=== PATIENT | female | born 1945 | race Caucasian/White ===

== ENCOUNTER 2022-04-18 18:00 | Inpatient (IN) | payer MEDICARE, OTHER ==
[~2022-04-18] VITALS: Ht 152.4 cm; Wt 62.2 kg
[2022-04-18] MEDS ORDERED: NS IV 1000 ML 1,000 ML IV SCH (18:15)
[2022-04-18 18:18] LABS: BASOPHILS # (AUTO) 0.1 10^3/uL (0.0-0.1); BASOPHILS % (AUTO) 1 % (0-10); EOSINOPHILS # (AUTO) 0.3 10^3/uL (0.0-0.3); EOSINOPHILS % (AUTO) 2 % (0-10); HEMATOCRIT 39 % (35-52); HEMOGLOBIN 13.2 g/dL (11.5-16.0); LYMPHOCYTES % (AUTO) 19 % (12-44); MEAN CORPUSCULAR HEMOGLOBIN 30 pg (25-34); MEAN CORPUSCULAR HGB CONC 34 g/dL (32-36); MEAN CORPUSCULAR VOLUME 88 fL (80-99); MEAN PLATELET VOLUME 9.6 fL (9.0-12.2); MONOCYTES # (AUTO) 0.4 10^3/uL (0.0-1.0); MONOCYTES % (AUTO) 3 % (0-12); NEUTROPHILS # (AUTO) 11.5 10^3/uL (1.8-7.8); NEUTROPHILS % (AUTO) 75 % (42-75); PLATELET COUNT 373 10^3/uL (130-400); WHITE BLOOD COUNT 15.3 10^3/uL (4.3-11.0)
--- NOTE | 2022-04-18 18:19 | ED General ---
General Stated Complaint: ABD PAIN, N/V Source of Information: Patient, EMS History of Present Illness Date Seen by Provider: Apr 18, 2022 Time Seen by Provider: 18:00 Initial Comments 76-year-old female presenting with EMS from home due to lower abdominal pain and nausea with vomiting and diarrhea. She states that she was feeling fine before she laid down for a nap and when she woke up she had the abdominal pain and cramping as well as diarrhea. After that she developed nausea and vomiting. She denies any exposure to ill contacts. She denies cough, shortness of breath, congestion, sore throat, pain with urination. She states that she has not eaten anything new or different. She has not had symptoms like this previously. She has had her appendix and uterus removed previously. Timing/Duration: 1 Hour Severity: Severe Associated Systoms: No Chest Pain, No Cough, No Diaphoresis, No Fever/Chills, No Headaches, No Loss of Appetite, No Malaise; Nausea/Vomiting; No Rash, No Seizure, No Shortness of Air, No Syncope Allergies and Home Medications Allergies Coded Allergies: Penicillins (Verified Allergy, Unknown, 04/18/22) Patient Home Medication List Home Medication List Reviewed: Yes Review of Systems Review of Systems Constitutional: chills; No fever EENTM: no symptoms reported Respiratory: no symptoms reported Cardiovascular: no symptoms reported Gastrointestinal: see HPI Genitourinary: no symptoms reported Musculoskeletal: no symptoms reported Skin: no symptoms reported Psychiatric/Neurological: No Symptoms Reported Past Xmessvd-Rhgovy-Ultlvh Hx Patient Social History Tobacco Use?: No Use of E-Cig and/or Vaping dev: No Substance use?: No Alcohol Use?: No Past Medical History Surgery/Hospitalization HX: Appendectomy, hysterectomy, HTN Physical Exam Vital Signs Vital Signs - First Documented 04/18/22 18:07 Temp 36.1 Pulse 77 Resp 22 B/P (MAP) 104/54 (71) Pulse Ox 99 O2 Delivery Room Air Capillary Refill : Height, Weight, BMI Height: '" Weight: lbs. oz. kg; BMI Method: General Appearance: Moderate Distress HEENT: PERRL/EOMI, Pharynx Normal Neck: Full Range of Motion, Normal Inspection, Non Tender, Supple Respiratory: Chest Non Tender, Lungs Clear, Normal Breath Sounds, No Accessory Muscle Use, No Respiratory Distress Cardiovascular: Regular Rate, Rhythm, Normal Peripheral Pulses Gastrointestinal: No Pulsatile Mass, Soft, Abnormal Bowel Sounds (Absent bowel sounds), Guarding (Suprapubic, left lower quadrant); No Rebound; Tenderness (Tender to palpation suprapubic and left lower quadrant) Rectal: Heme Positive Stool (Normal brown-colored stool but tested heme positive on Hemoccult) Extremity: Normal Capillary Refill, Normal Inspection, No Pedal Edema Neurologic/Psychiatric: Alert, Oriented x3, polisher hand II-XII Norm as Tested Skin: Normal Color, Warm/Dry Focused Exam Lactate Level 04/18/22 18:05: Lactic Acid Level 4.11*H Lactic Acid Level Laboratory Tests Test 04/18/22 18:05 Lactic Acid Level 4.11 MMOL/L (0.50-2.00) *H Progress/Results/Core Measures Suspected Sepsis SIRS Temperature: Pulse: Respiratory Rate: Laboratory Tests 04/18/22 18:05: White Blood Count 15.3H Blood Pressure / Mean: 04/18/22 18:05: Lactic Acid Level 4.11*H Laboratory Tests 04/18/22 18:05: Creatinine 0.99, INR Comment 0.9, Platelet Count 373, Total Bilirubin 0.5 Results/Orders Lab Results Laboratory Tests Test 04/18/22 18:05 04/18/22 20:05 Range/Units White Blood Count 15.3 H 4.3-11.0 10^3/uL Red Blood Count 4.48 3.80-5.11 10^6/uL Hemoglobin 13.2 11.5-16.0 g/dL Hematocrit 39 35-52 % Mean Corpuscular Volume 88 80-99 fL Mean Corpuscular Hemoglobin 30 25-34 pg Mean Corpuscular Hemoglobin Concent 34 32-36 g/dL Red Cell Distribution Width 13.3 10.0-14.5 % Platelet Count 373 130-400 10^3/uL Mean Platelet Volume 9.6 9.0-12.2 fL Immature Granulocyte % (Auto) 1 % Neutrophils (%) (Auto) 75 42-75 % Lymphocytes (%) (Auto) 19 12-44 % Monocytes (%) (Auto) 3 0-12 % Eosinophils (%) (Auto) 2 0-10 % Basophils (%) (Auto) 1 0-10 % Neutrophils # (Auto) 11.5 H 1.8-7.8 10^3/uL Lymphocytes # (Auto) 3.0 1.0-4.0 10^3/uL Monocytes # (Auto) 0.4 0.0-1.0 10^3/uL Eosinophils # (Auto) 0.3 0.0-0.3 10^3/uL Basophils # (Auto) 0.1 0.0-0.1 10^3/uL Immature Granulocyte # (Auto) 0.1 0.0-0.1 10^3/uL Neutrophils % (Manual) 83 % Lymphocytes % (Manual) 16 % Band Neutrophils 1 % Prothrombin Time 13.0 12.2-14.7 SEC INR Comment 0.9 0.8-1.4 Activated Partial Thromboplast Time 20 L 24-35 SEC Sodium Level 136 135-145 MMOL/L Potassium Level 3.7 3.6-5.0 MMOL/L Chloride Level 101 98-107 MMOL/L Carbon Dioxide Level 15 L 21-32 MMOL/L Anion Gap 20 H 5-14 MMOL/L Blood Urea Nitrogen 25 H 7-18 MG/DL Creatinine 0.99 0.60-1.30 MG/DL Estimat Glomerular Filtration Rate 58 BUN/Creatinine Ratio 25 Glucose Level 198 H 70-105 MG/DL Lactic Acid Level 4.11 *H 0.50-2.00 MMOL/L Calcium Level 10.6 H 8.5-10.1 MG/DL Corrected Calcium 8.5-10.1 MG/DL Total Bilirubin 0.5 0.1-1.0 MG/DL Aspartate Amino Transf (AST/SGOT) 27 5-34 U/L Alanine Aminotransferase (ALT/SGPT) 20 0-55 U/L Alkaline Phosphatase 62 40-136 U/L Troponin I < 0.30 <0.30 NG/ML C-Reactive Protein 0.69 H <0.50 MG/DL Total Protein 7.5 6.4-8.2 GM/DL Albumin 4.7 H 3.2-4.5 GM/DL Influenza Type A (RT-PCR) Not Detected Not Detecte Influenza Type B (RT-PCR) Not Detected Not Detecte SARS-CoV-2 RNA (RT-PCR) Not Detected Not Detecte Urine Color DARK YELLOW Urine Clarity CLOUDY Urine pH 7.5 5-9 Urine Specific [place] 1.010 L 1.016-1.022 Urine Protein TRACE H NEGATIVE Urine Glucose (UA) NEGATIVE NEGATIVE Urine Ketones NEGATIVE NEGATIVE Urine Nitrite NEGATIVE NEGATIVE Urine Bilirubin 2+ H NEGATIVE Urine Urobilinogen 2.0 < = 1.0 MG/DL Urine Leukocyte Esterase NEGATIVE NEGATIVE Urine RBC (Auto) NEGATIVE NEGATIVE Urine RBC NONE /HPF Urine WBC 5-10 H /HPF Urine Squamous Epithelial Cells 0-2 /HPF Urine Crystals NONE /LPF Urine Bacteria LARGE H /HPF Urine Casts NONE /LPF Urine Mucus NEGATIVE /LPF Urine Culture Indicated YES My Orders Orders - PRETTY GAN MD Monitor-Rhythm Ecg Trace Only (04/18/22 18:11) Ed Iv/Invasive Line Start (04/18/22 18:11) Cbc With Automated Diff (04/18/22 18:11) Comprehensive Metabolic Panel (04/18/22 18:11) Crp Fs (04/18/22 18:11) Troponin I Fs (04/18/22 18:11) Protime With Inr (04/18/22 18:11) Partial Thromboplastin Time (04/18/22 18:11) Ekg Tracing (04/18/22 18:11) Ns Iv 1000 Ml (Sodium Chloride 0.9%) (04/18/22 18:15) Covid 19 Inhouse Test (04/18/22 18:11) Ct Abdomen/Pelvis W (04/18/22 18:11) Influenza A And B By Pcr (04/18/22 18:11) Isolation Central Supply Req (04/18/22 18:11) Blood Culture (04/18/22 18:13) Lactic Acid Analyzer (04/18/22 18:13) Manual Differential (04/18/22 18:05) Ua Culture If Indicated (04/18/22 18:22) Ns Iv 1000 Ml (Sodium Chloride 0.9%) (04/18/22 18:49) Iohexol Injection (Omnipaque 350 Mg/Ml 1 (04/18/22 19:00) Received Contrast (Hold Metformin- Contr (04/18/22 19:00) Sodium Chloride Flush (Catheter Flush Sy (04/18/22 19:00) Ns (Ivpb) (Sodium Chloride 0.9% Ivpb Bag (04/18/22 19:00) Straight Cath For Spec.-Adult (04/18/22 19:16) Urine Culture (04/18/22 20:05) Ceftriaxone 1 Gm Pre-Mix (Rocephin 1 Gm (04/18/22 20:55) Lactated Ringers (Lr 1000 Ml Iv Solution (04/18/22 20:55) Stool Culture (04/18/22 21:27) Fecal Wbc (04/18/22 21:27) C Difficile Ag + Toxin A/B. (04/18/22 21:27) Isolation Central Supply Req (04/18/22 21:27) Medications Given in ED Current Medications Medications Dose Ordered Sig/John Route Start Time Stop Time Status Last Admin Dose Admin Iohexol 100 ml ONCE ONCE IV 04/18/22 19:00 04/18/22 19:01 DC 04/18/22 19:12 100 ML Sodium Chloride 10 ml NEEDED PRN IV 04/18/22 19:00 04/18/22 19:12 10 ML Sodium Chloride 100 ml ONCE ONCE IV 04/18/22 19:00 04/18/22 19:01 DC 04/18/22 19:12 80 ML Vital Signs/I&O 04/18/22 04/18/22 04/18/22 04/18/22 18:07 20:00 20:45 21:15 Temp 36.1 Pulse 77 85 81 86 Resp 22 15 15 14 B/P (MAP) 104/54 (71) 124/53 134/55 132/62 Pulse Ox 99 100 100 100 O2 Delivery Room Air Room Air Room Air Room Air 04/18/22 04/18/22 21:45 21:50 Pulse 86 70 Resp 15 14 B/P (MAP) 132/62 132/80 Pulse Ox 100 100 O2 Delivery Room Air Room Air Capillary Refill : Progress Note #1: Progress Note Check labs and urinalysis. Obtain electrocardiogram in addition to CT scan of her abdomen and pelvis. COVID swab and influenza swab. Give normal saline 1 L IV fluid bolus for hydration Progress Note #2: Progress Note Labs shows elevated white blood cell count to 15.3 thousand. She has elevated lactic acid of 4.11. Her Hemoccult test on the diarrhea stool was positive for blood. The stool itself was normal brown in color. Chemistry otherwise showed some possible mild dehydration with GFR 58 and a creatinine of 0.99. Cardiac enzymes were negative. Influenza and COVID swab were negative. Awaiting urinalysis and CT scan. Give a second liter of normal saline IV fluid bolus to help treat for the elevated lactic acid. This will give her a 30 milliliter per kilogram bolus of normal saline. Progress Note #3: Progress Note CT scan shows what appears to be at least a partial small bowel obstruction. Patient has had no vomiting here in the ED. With her findings for urinary tract infection, sepsis, elevated white blood cell count, elevated lactic acid, will admit patient for continued IV antibiotics and fluids. Monitoring for her partial small bowel obstruction. Try to obtain stool cultures in case there may be an infectious source for her nausea, vomiting, diarrhea. Discussed with Dr. Roca for the [facility] service and he accepted patient for admission. Consult Dr. OSCAR with surgery about the small bowel obstruction. ECG Initial ECG Impression Date: Apr 18, 2022 Initial ECG Impression Time: 18:29 Initial ECG Rate: 68 Initial ECG Rhythm: Normal Sinus Initial ECG Comparisson: No Previous ECG Available Comment Normal sinus rhythm with a heart rate of 68 bpm. [place] interval [address] elevation. Left axis deviation. Right bundle branch block. QT interval 422 ms with a QTc interval 439 ms. There is no prior tracing available for comparison. Diagnostic Imaging Diagonstic Imaging: CT Plain Films/CT/US/NM/MRI: abdomen, pelvis Comments NAME: [facility] REC#: [id number] PT STATUS: REG ER : 1945 PHYSICIAN: PRETTY GAN MD ADMIT DATE: 04/18/22/ER FS Draft Date of Exam:04/18/22 CT ABDOMEN/PELVIS W PROCEDURE: CT abdomen and pelvis with contrast. TECHNIQUE: Multiple contiguous axial images were obtained through the abdomen and pelvis after administration of intravenous contrast. Auto Exposure Controls were utilized during the CT exam to meet ALARA standards for radiation dose reduction. All CT scans use one or more of the following dose optimizing techniques: automated exposure control, MA and/or KvP adjustment based on patient size and exam type or iterative reconstruction. INDICATION: Lower abdominal pain with nausea, vomiting, diarrhea and chills. FINDINGS: The heart size is normal. There is a 7 mm noncalcified nodule in the left lung base. The lung bases are otherwise clear. The liver is normal in size. There is tiny cyst in the right lobe of the liver. There is no biliary duct dilatation. There is some questionable gallbladder wall thickening. Spleen is normal. The pancreas and adrenal glands are grossly unremarkable. Kidneys are normal. There is some moderately distended loops of small bowel suspect for small bowel obstruction. There is no free air. There is no ascites. There is a large amount of retained fecal material likely reflecting some degree of constipation. Bladder is normal. There is no pelvic mass or adenopathy. There are degenerative changes in the spine. IMPRESSION: 1. Dilated loops of small bowel suspect for small bowel obstruction. Additionally, there is a moderate amount of retained fecal material within the colon possibly reflecting some degree of constipation. 2. Questionable gallbladder wall thickening. This could be better evaluated with right upper quadrant ultrasound if clinically warranted. 3. 7 mm noncalcified nodule in the left lung base. There is likely a granuloma although neoplasm cannot be entirely excluded. Recommend short interval follow-up in three months to ensure stability. 4. Moderate degenerative changes in the spine. Dictated on workstation # [id number] Dict: 04/18/222001 Trans: 04/18/222008 [id number] Interpreted by: MARANDA CHOPRA MD Electronically signed by: Reviewed: Reviewed by Me Departure Communication (Admissions) Time/Spoke to Admitting Phy: 20:[address] Roca who is on-call for the [facility] service. He accepted the admission for the patient with findings for sepsis, UTI, small bowel obstruction. Will consult general surgery about CT findings. Give Rocephin for the urinary tract infection and sepsis. Time/Spoke to Consulting Phy: 20:[address] Oscar of consult Impression Primary Impression: Small bowel obstruction Additional Impressions: Nausea vomiting and diarrhea Lower abdominal pain Cystitis without hematuria Sepsis Qualified Codes: A41.9 - Sepsis, unspecified organism Disposition: 30 STILL A PATIENT Condition: Stable Admissions Decision to Admit Reason: Admit from ER (General) Decision to Admit/Date: Apr 18, 2022 Time/Decision to Admit Time: 20:48 Departure-Patient Inst. Referrals: EBONY SANTIZO MD Primary Care Physician PRETTY GAN MD Apr 18, 2022 18:19
[2022-04-18 18:24] LABS: INR 0.9 (0.8-1.4)
[2022-04-18 18:35] LABS: ALANINE AMINOTRANSFERASE 20 U/L (0-55); ALBUMIN 4.7 GM/DL (3.2-4.5); ALKALINE PHOSPHATASE 62 U/L (40-136); BILIRUBIN,TOTAL 0.5 MG/DL (0.1-1.0); BUN/CREATININE RATIO 25; CALCIUM 10.6 MG/DL (8.5-10.1); CARBON DIOXIDE 15 MMOL/L (21-32); CHLORIDE 101 MMOL/L (98-107); CREATININE SERUM 0.99 MG/DL (0.60-1.30); GFR ESTIMATED 58; GLUCOSE 198 MG/DL (70-105); POTASSIUM 3.7 MMOL/L (3.6-5.0); SODIUM 136 MMOL/L (135-145); TOTAL PROTEIN 7.5 GM/DL (6.4-8.2)
[2022-04-18] MEDS ORDERED: NS IV 1000 ML 1,000 ML IV STA (18:49)
[2022-04-18] MEDS ORDERED: HOLD METFORMIN - RECEIVED CONTRAST 20 ML VIAL IV SCH (19:00)
[2022-04-18] MEDS ORDERED: NS 100 ML (IVPB) BAG IV ONE (19:00)
[2022-04-18] MEDS ORDERED: IOHEXOL 350 MG/ML 100 ML (OMNIPAQUE 350) VIAL IV ONE (19:00)
[2022-04-18] MEDS ORDERED: CATHETER FLUSH 10 ML SYR IV PRN (19:00)
[2022-04-18 19:07] LABS: BAND NEUTROPHILS 1 %; LYMPHOCYTES % (MANUAL) 16 %; NEUTROPHILS % (MANUAL) 83 %
--- NOTE | 2022-04-18 20:09 | Diagnostic Imaging Report ---
PROCEDURE: CT abdomen and pelvis with contrast. TECHNIQUE: Multiple contiguous axial images were obtained through the abdomen and pelvis after administration of intravenous contrast. Auto Exposure Controls were utilized during the CT exam to meet ALARA standards for radiation dose reduction. All CT scans use one or more of the following dose optimizing techniques: automated exposure control, MA and/or KvP adjustment based on patient size and exam type or iterative reconstruction. INDICATION: Lower abdominal pain with nausea, vomiting, diarrhea and chills. FINDINGS: The heart size is normal. There is a 7 mm noncalcified nodule in the left lung base. The lung bases are otherwise clear. The liver is normal in size. There is tiny cyst in the right lobe of the liver. There is no biliary duct dilatation. There is some questionable gallbladder wall thickening. Spleen is normal. The pancreas and adrenal glands are grossly unremarkable. Kidneys are normal. There is some moderately distended loops of small bowel suspect for small bowel obstruction. There is no free air. There is no ascites. There is a large amount of retained fecal material likely reflecting some degree of constipation. Bladder is normal. There is no pelvic mass or adenopathy. There are degenerative changes in the spine. IMPRESSION: 1. Dilated loops of small bowel suspect for small bowel obstruction. Additionally, there is a moderate amount of retained fecal material within the colon possibly reflecting some degree of constipation. 2. Questionable gallbladder wall thickening. This could be better evaluated with right upper quadrant ultrasound if clinically warranted. 3. 7 mm noncalcified nodule in the left lung base. There is likely a granuloma although neoplasm cannot be entirely excluded. Recommend short interval follow-up in three months to ensure stability. 4. Moderate degenerative changes in the spine. Dictated by: Dictated on workstation # [id number]
[2022-04-18 20:14] LABS: GLUCOSE, URINE (UA) NEGATIVE (NEGATIVE); KETONES,URINE NEGATIVE (NEGATIVE); LEUKOCYTE ESTERASE ,URINE NEGATIVE (NEGATIVE); NITRITE,URINE NEGATIVE (NEGATIVE); PH,URINE 7.5 (5-9); PROTEIN,URINE TRACE (NEGATIVE)
[2022-04-18 20:21] LABS: BACTERIA,URINE LARGE /HPF; BILIRUBIN,URINE 2+ (NEGATIVE); CLARITY,URINE CLOUDY; COLOR,URINE DARK YELLOW; SQUAMOUS EPITHELIAL CELL,UR 0-2 /HPF
[2022-04-18] MEDS ORDERED: cefTRIAXone 1 GM PRE-MIX 50 ML IV STA (20:55)
[2022-04-18] MEDS ORDERED: LACTATED RINGERS 1,000 ML IV STA (20:55)
[2022-04-18] MEDS ORDERED: ONDANSETRON 4 MG/2 ML (SDV) Z0FRAN IVP PRN (21:45)
[2022-04-18] MEDS ORDERED: HYDROcodone/APAP 7.5 MG/325 MG (LORTAB, LORCET PLUS) TABLET PO PRN (21:45)
[2022-04-18] MEDS ORDERED: fentaNYL INJ 100 MCG/2 ML AMP IVP PRN (21:45)
[2022-04-18 22:59] VITALS: BP 132/61
[2022-04-18] MEDS ORDERED: LACTATED RINGERS 1,000 ML IV SCH (23:00)
--- NOTE | 2022-04-19 01:29 | CONSULTATION REPORT ---
DATE OF SERVICE: HISTORY OF PRESENT ILLNESS: The patient's clinical presentation information was accrued through the emergency room physician as well as the patient's electronic medical records. The patient is a 76-year-old female who presented to [facility] with crampy abdominal pain as well as nausea, vomiting, and diarrhea. She stated that this started last night and persisted. Upon presentation, she was found to be significantly dehydrated with an elevation of lactic acid. She does not report eating different foods or ingesting of other water sources. She states that the pain is more in the upper abdominal quadrants and is crampy in nature. Again, this was associated with nausea and vomiting of bilious material. No hematemesis, no coffee ground emesis. During this timeframe, she has also had several episodes of diarrhea. No red blood per rectum, no dark tarry stools. A CT scan was performed, which did show some dilated loops of small bowel; however, this appears to be nonspecific. CT scan also did show gallbladder wall thickening. She does not report ever having these symptoms before in the past. PAST MEDICAL HISTORY: Hypertension. PAST SURGICAL HISTORY: Appendectomy, hysterectomy. ALLERGIES: PENICILLIN. MEDICATIONS: Antihypertensive medication. SOCIAL HISTORY: Negative smoke, negative alcohol. FAMILY HISTORY: Noncontributory. PHYSICAL EXAMINATION: VITAL SIGNS: Temperature 36.1, blood pressure 104/54, pulse 77, respirations 22, pulse ox 99% on room air. REVIEW OF SYSTEMS: This is a well-nourished female, currently slightly uncomfortable due to the nausea as well as the crampy abdominal pain. She is not experiencing any shortness of breath or difficulty in breathing. No cough or sputum production. Intermittent episodes of nausea, vomiting. No hematemesis, no coffee ground emesis. She also has been having diarrhea, no red blood per rectum, no dark tarry stools. No fever, chills, no recent inadvertent weight loss. All other review of systems negative. Physical examination will be assessed upon examining the patient in the a.m. LABORATORY DATA: WBC 15.3, hemoglobin 13.2, hematocrit 39, platelets 373. BUN 25, creatinine 0.99. Lactic acid 4.11. Liver function enzymes are normal. Urinalysis, 2+ urine bilirubin, large amounts of bacteria. ASSESSMENT AND PLAN: A 76-year-old female with crampy abdominal pain, nausea and vomiting and diarrhea with profound dehydration. A CT scan was performed, which did show some dilated loops of small bowel; however, this does not appear to be a small-bowel obstruction and she is also having significant amounts of diarrhea. CT scan also detected gallbladder wall thickening; however, it does not discern any gallstones or any biliary sludge. We feel that this may likely represent an acute on chronic acalculous cholecystitis. For now, we will proceed with bowel rest, IV hydration, IV antibiotics, as well as pain control as necessary. We will also proceed with an ultrasound of the gallbladder and biliary tree once available. Job ID: [id number] DocumentID: [id number] Dictated Date: 04/18/2022 21:53:33 Structural Engineering Project Manager Date: 04/19/2022 01:28:53 Dictated By: DOUGIE PAZ MD
[2022-04-19 03:23] VITALS: BP 142/66
[2022-04-19 06:12] LABS: BASOPHILS % (AUTO) 0 % (0-10); EOSINOPHILS % (AUTO) 0 % (0-10); HEMATOCRIT 38 % (35-52); HEMOGLOBIN 12.3 g/dL (11.5-16.0); LYMPHOCYTES # (AUTO) 0.5 10^3/uL (1.0-4.0); LYMPHOCYTES % (AUTO) 3 % (12-44); MEAN CORPUSCULAR HEMOGLOBIN 30 pg (25-34); MEAN CORPUSCULAR HGB CONC 33 g/dL (32-36); MEAN CORPUSCULAR VOLUME 92 fL (80-99); MEAN PLATELET VOLUME 9.9 fL (9.0-12.2); MONOCYTES % (AUTO) 7 % (0-12); NEUTROPHILS # (AUTO) 12.9 10^3/uL (1.8-7.8); NEUTROPHILS % (AUTO) 89 % (42-75); PLATELET COUNT 296 10^3/uL (130-400); WHITE BLOOD COUNT 14.5 10^3/uL (4.3-11.0)
[2022-04-19 06:28] LABS: POTASSIUM 3.9 MMOL/L (3.6-5.0)
[2022-04-19 06:29] LABS: CALCIUM 8.3 MG/DL (8.5-10.1)
[2022-04-19 06:33] LABS: CREATININE SERUM 0.7 MG/DL (0.60-1.30)
[2022-04-19 07:44] VITALS: BP 114/65
--- NOTE | 2022-04-19 10:03 | Progress Note ---
Subjective Date Seen by a Provider: Apr 19, 2022 Time Seen by a Provider: 09:10 Subjective/Events-last exam Patient seen with Dr. Oscar. Patient reports doing better today. Denies any abdominal pain, nausea, or vomiting. Tolerating diet. Focused Exam Lactate Level 04/18/22 18:05: Lactic Acid Level 4.11*H Objective Exam Vital Signs Date Time Temp Pulse Resp B/P (MAP) Pulse Ox O2 Delivery O2 Flow Rate FiO2 04/19/22 07:44 37.4 101 18 114/65 (81) 93 Room Air 04/19/22 07:00 102 04/19/22 03:23 38.1 101 20 142/66 (91) 94 Room Air 04/19/22 00:54 91 04/19/22 00:25 88 04/18/22 23:00 Room Air 04/18/22 22:59 38.1 90 20 132/61 (84) 92 Room Air 04/18/22 21:50 70 14 132/80 100 Room Air 04/18/22 21:45 86 15 132/62 100 Room Air 04/18/22 21:15 86 14 132/62 100 Room Air 04/18/22 20:45 81 15 134/55 100 Room Air 04/18/22 20:00 85 15 124/53 100 Room Air 04/18/22 18:07 36.1 77 22 104/54 (71) 99 Room Air I & O 04/19/22 07:00 Intake Total 1600 ml Balance 1600 ml Capillary Refill : Less Than 3 Seconds General Appearance: No Apparent Distress, WD/WN Neck: Normal Inspection, Supple Respiratory: No Accessory Muscle Use, No Respiratory Distress Cardiovascular: Regular Rate, Rhythm, No Edema Gastrointestinal: normal bowel sounds, non tender, soft Extremity: Normal Inspection, Normal Range of Motion Neurologic/Psychiatric: Alert, Oriented x3 Skin: Normal Color, Warm/Dry Results Lab Laboratory Tests 04/18/22 18:05: White Blood Count 15.3H, Red Blood Count 4.48, Hemoglobin 13.2, Hematocrit 39, Mean Corpuscular Volume 88, Mean Corpuscular Hemoglobin 30, Mean Corpuscular Hemoglobin Concent 34, Red Cell Distribution Width 13.3, Platelet Count 373, Mean Platelet Volume 9.6, Immature Granulocyte % (Auto) 1, Neutrophils (%) (Auto) 75, Lymphocytes (%) (Auto) 19, Monocytes (%) (Auto) 3, Eosinophils (%) (Auto) 2, Basophils (%) (Auto) 1, Neutrophils # (Auto) 11.5H, Lymphocytes # (Auto) 3.0, Monocytes # (Auto) 0.4, Eosinophils # (Auto) 0.3, Basophils # (Auto) 0.1, Immature Granulocyte # (Auto) 0.1, Neutrophils % (Manual) 83, Lymphocytes % (Manual) 16, Band Neutrophils 1, Prothrombin Time 13.0, INR Comment 0.9, Activated Partial Thromboplast Time 20L, Sodium Level 136, Potassium Level 3.7, Chloride Level 101, Carbon Dioxide Level 15L, Anion Gap 20H, Blood Urea Nitrogen 25H, Creatinine 0.99, Estimat Glomerular Filtration Rate 58, BUN/Creatinine Ratio 25, Glucose Level 198H, Lactic Acid Level 4.11*H, Calcium Level 10.6H, Corrected Calcium , Total Bilirubin 0.5, Aspartate Amino Transf (AST/SGOT) 27, Alanine Aminotransferase (ALT/SGPT) 20, Alkaline Phosphatase 62, Troponin I < 0.30, C-Reactive Protein 0.69H, Total Protein 7.5, Albumin 4.7H, Influenza Type A (RT-PCR) Not Detected, Influenza Type B (RT-PCR) Not Detected, SARS-CoV-2 RNA (RT-PCR) Not Detected 04/18/22 20:05: Urine Color DARK YELLOW, Urine Clarity CLOUDY, Urine pH 7.5, Urine Specific [place] 1.010L, Urine Protein TRACEH, Urine Glucose (UA) NEGATIVE, Urine Ketones NEGATIVE, Urine Nitrite NEGATIVE, Urine Bilirubin 2+H, Urine Urobilinogen 2.0, Urine Leukocyte Esterase NEGATIVE, Urine RBC (Auto) NEGATIVE, Urine RBC NONE, Urine WBC 5-10H, Urine Squamous Epithelial Cells 0-2, Urine Crystals NONE, Urine Bacteria LARGEH, Urine Casts NONE, Urine Mucus NEGATIVE, Urine Culture Indicated YES 04/19/22 05:23: White Blood Count 14.5H, Red Blood Count 4.13, Hemoglobin 12.3, Hematocrit 38, Mean Corpuscular Volume 92, Mean Corpuscular Hemoglobin 30, Mean Corpuscular Hemoglobin Concent 33, Red Cell Distribution Width 13.4, Platelet Count 296, Mean Platelet Volume 9.9, Immature Granulocyte % (Auto) 0, Neutrophils (%) (Auto) 89H, Lymphocytes (%) (Auto) 3L, Monocytes (%) (Auto) 7, Eosinophils (%) (Auto) 0, Basophils (%) (Auto) 0, Neutrophils # (Auto) 12.9H, Lymphocytes # (Auto) 0.5L, Monocytes # (Auto) 1.0, Eosinophils # (Auto) 0.0, Basophils # ( Auto) 0.0, Immature Granulocyte # (Auto) 0.1, Sodium Level 140, Potassium Level 3.9, Chloride Level 111#H, Carbon Dioxide Level 15L, Anion Gap 14, Blood Urea Nitrogen 19H, Creatinine 0.70, Estimat Glomerular Filtration Rate 88, BUN/Creatinine Ratio 27, Glucose Level 150H, Calcium Level 8.3L Microbiology 04/18/22 Urine Culture - Preliminary, Resulted Probable E.coli Assessment/Plan Assessment/Plan Assess & Plan/Chief Complaint A 76-year-old female with crampy abdominal pain, nausea and vomiting and diarrhea with profound dehydration. VSS WBC 14.5 CT scan also detected gallbladder wall thickening - Will proceed with gallbladder ultrasound PUD prophylaxis Continue with IV fluids, abx, pain meds Will increase diet to low fat TAYLOR REYES TRASH HAULER Apr 19, 2022 10:03
[2022-04-19] MEDS: PANTOPRAZOLE 40 MG (PROTONIX) VIAL IV SCH (10:11)
[2022-04-19] MEDS: CIPROFLOXACIN IV 400MG/200ML 200 ML IV SCH ×2 (10:11→21:50)
[2022-04-19] MEDS: metroNIDAZOLE 500MG/100ML IVPB 100 ML IV SCH ×2 (10:11→20:37)
--- NOTE | 2022-04-19 10:48 | History & Physical-Hospitalist ---
History of Present Illness HPI/Chief Complaint The patient's clinical presentation information was accrued through the emergency room physician as well as the patient's electronic medical records. The patient is a 76-year-old female who presented to [facility] with crampy abdominal pain as well as nausea, vomiting, and diarrhea. She stated that this started last night and persisted. Upon presentation, she was found to be significantly dehydrated with an elevation of lactic acid. She does not report eating different foods or ingesting of other water sources. She states that the pain is more in the upper abdominal quadrants and is crampy in nature. Again, this was associated with nausea and vomiting of bilious material. No hematemesis, no coffee ground emesis. During this timeframe, she has also had several episodes of diarrhea. No red blood per rectum, no dark tarry stools. A CT scan was performed, which did show some dilated loops of small bowel; however, this appears to be nonspecific. CT scan also did show gallbladder wall thickening. She does not report ever having these symptoms before in the past. Upon my arrival the patient was feeling better with decrease in diarrhea tolerating liquids. She denied any previous history of antibiotic associated diarrhea or C. difficile infections and has had no recent antibiotic use. Symptoms began abruptly around 5:00 PM. Her last meal was a turkey sandwich but she reported that she had purchased a earlier that day at the grocery store and it did not taste funny. No one else has been sick at home and there is been no travel. She has been under increased stress caring for her who apparently is on comfort care at home with terminal heart failure. She denied any chills or fever and reported that her abdominal pain was all lower and quite severe to the point that she could not even touch her abdomen yesterday but this is significantly improved demonstrating that she can push on the abdomen without distress this morning. Date Seen 04/19/22 Time Seen by a Provider: 09:50 Attending Physician PCP Admitting Physician: Nadege Méndez MD Attending Physician: Nadege Méndez MD Referring Physician Date of Admission Apr 18, 2022 at 22:38 Home Medications & Allergies Home Medications Reviewed patient Home Medication Reconciliation performed by pharmacy medication reconciliations weight reducing technician and/or nursing. Patients Allergies have been reviewed. Allergies Allergies Coded Allergies Penicillins (Verified Allergy, Unknown, 04/18/22) Past Rcogkkh-Gbecpa-Qvnbvd Hx Patient Social History Tobacco Use?: No Use of E-Cig and/or Vaping dev: No Substance use?: No Alcohol Use?: No Pt feels they are or have been: No Current Status status: No Advance Directives: Yes Advance Directive Location: Home Communicates: Verbally Primary Language: Upper Sorbian Preferred Spoken Language: Upper Sorbian Is interpretation needed?: No Sensory deficits: Vision impairment Implanted or Applied Medical D: None Review of Systems Constitutional: see HPI Physical Exam Physical Exam Vital Signs Vital Signs - First Documented 04/18/22 18:07 Temp 36.1 Pulse 77 Resp 22 B/P (MAP) 104/54 (71) Pulse Ox 99 O2 Delivery Room Air Capillary Refill : Less Than 3 Seconds Height, Weight, BMI Height: '" Weight: lbs. oz. kg; 26.78 BMI Method: General Appearance: No Apparent Distress Neck: Full Range of Motion, Normal Inspection, Non Tender Respiratory: Chest Non Tender, Lungs Clear, Normal Breath Sounds, No Accessory Muscle Use, No Respiratory Distress Cardiovascular: Regular Rate, Rhythm, No Edema, No Gallop, No JVD, Normal Peripheral Pulses, Other (Soft 1/6 to 2/6 systolic ejection murmur heard best at the second intercostal space) Gastrointestinal: No Organomegaly, No Pulsatile Mass, Non Tender, Soft, Other ( bowel sounds hyperactive no borborygmi noted no distention.) Results Results/Procedures Labs Laboratory Tests 04/18/22 18:05 04/19/22 05:23 Patient resulted labs reviewed. Assessment/Plan Admission Diagnosis 1. Acute likely infectious gastroenteritis with secondary dehydration much improved will DC IV fluids as patient is tolerating p.o. monitor today with likely discharge tomorrow. 2. History of hypertension currently normotensive hold lisinopril for now. Admission Status: Observation NADEGE MÉNDEZ MD Apr 19, 2022 10:48
--- NOTE | 2022-04-19 11:15 | Progress Note ---
Standard Progress Note Progress Notes/Assess & Plan Date Seen by a Provider: Apr 19, 2022 Time Seen by a Provider: 10:00 Progress/Assessment & Plan doing well. minimal abd pain. PE: chest-clear, good BS bilat heart-reg, no murmurs extr-no LE edema, neg homans heent-supple, no scleral icterus abd-soft, non-dist, mild lower abd pain, no peritonitis. Focused Exam Lactate Level 04/18/22 18:05: Lactic Acid Level 4.11*H DOUGIE PAZ MD Apr 19, 2022 11:15
[2022-04-19 12:00] VITALS: BP 114/67
[2022-04-19] MEDS ORDERED: LACTATED RINGERS 1,000 ML IV SCH (12:00)
[2022-04-19 16:00] VITALS: BP 118/70
[2022-04-19 19:23] VITALS: BP 118/68
[2022-04-19] MEDS ORDERED: cefTRIAXone 1 GM PRE-MIX 50 ML IV SCH (21:00)
[2022-04-20 00:47] VITALS: BP 117/68
[2022-04-20 04:00] VITALS: BP 120/70
[2022-04-20 07:06] LABS: BASOPHILS # (AUTO) 0.1 10^3/uL (0.0-0.1); BASOPHILS % (AUTO) 0 % (0-10); EOSINOPHILS # (AUTO) 0.3 10^3/uL (0.0-0.3); EOSINOPHILS % (AUTO) 2 % (0-10); HEMATOCRIT 35 % (35-52); HEMOGLOBIN 11.4 g/dL (11.5-16.0); LYMPHOCYTES # (AUTO) 1.3 10^3/uL (1.0-4.0); LYMPHOCYTES % (AUTO) 10 % (12-44); MEAN CORPUSCULAR HEMOGLOBIN 30 pg (25-34); MEAN CORPUSCULAR HGB CONC 33 g/dL (32-36); MEAN CORPUSCULAR VOLUME 92 fL (80-99); MEAN PLATELET VOLUME 9.5 fL (9.0-12.2); MONOCYTES # (AUTO) 1.1 10^3/uL (0.0-1.0); MONOCYTES % (AUTO) 8 % (0-12); NEUTROPHILS # (AUTO) 9.9 10^3/uL (1.8-7.8); NEUTROPHILS % (AUTO) 78 % (42-75); PLATELET COUNT 235 10^3/uL (130-400); WHITE BLOOD COUNT 12.6 10^3/uL (4.3-11.0)
[2022-04-20 07:32] LABS: ALBUMIN 2.9 GM/DL (3.2-4.5); POTASSIUM 3.9 MMOL/L (3.6-5.0)
[2022-04-20 07:33] LABS: CALCIUM 8.3 MG/DL (8.5-10.1)
[2022-04-20 07:35] LABS: TOTAL PROTEIN 5.1 GM/DL (6.4-8.2)
[2022-04-20 07:36] VITALS: BP 120/61
[2022-04-20 07:36] LABS: BILIRUBIN,TOTAL 0.5 MG/DL (0.1-1.0)
[2022-04-20 07:38] LABS: CREATININE SERUM 0.63 MG/DL (0.60-1.30)
[2022-04-20] MEDS ORDERED: LISI20TA26 PO (09:39)
[2022-04-20] MEDS ORDERED: MULT-974 PO (09:40)
[2022-04-20] MEDS ORDERED: CHOL-34 PO (09:41)
[2022-04-20] MEDS: metroNIDAZOLE 500MG/100ML IVPB 100 ML IV SCH (10:25)
[2022-04-20] MEDS: PANTOPRAZOLE 40 MG (PROTONIX) VIAL IV SCH (10:26)
[2022-04-20] MEDS: CIPROFLOXACIN IV 400MG/200ML 200 ML IV SCH (10:26)
--- NOTE | 2022-04-20 11:01 | Occupational Therapy Eval ---
OT Evaluation-General/PLF Medical Diagnosis Admission Date Apr 18, 2022 at 22:38 Medical Diagnosis: sepsis Onset Date: Apr 18, 2022 Therapy Diagnosis Therapy Diagnosis: decreased ADL status Precautions Precautions/Isolations: Fall Prevention, Standard Precautions Referral Physician: Nithya Paz Reason: Evaluation/Treatment Medical History Additional Medical History HTN Current History ED with abdominal pain, nausea, vomiting and diarrhea Social History Home: Single Level Current Living Status: Spouse Entry Into Home: Ramp ADL-Prior Level of Function SCALE: Activities may be completed with or without assistive devices. 2-Lbdfmzgwpi-vpkqlpo completes the activity by him/herself with no assistance from a helper. 5-Set-up or Clean-up Assistance-helper sets up or cleans up; patient completes activity. [place] assists only prior to or following the activity. 4-Supervision or Touching Assistance-helper provides verbal cues and/or touching/steadying and/or contact guard assistance as patient completes activity. Assistance may be provided throughout the activity or intermittently. 3-Partial/Moderate Assistance-helper does LESS THAN HALF the effort. [place] lifts, holds or supports trunk or limbs, but provides less than half the effort. 2-Substantial/Maximal Assistance-helper does MORE THAN HALF the effort. [place] lifts or holds trunk or limbs and provides more than half the effort. 4-Hpydqjyyl-jmszbt does ALL the effort. Patient does none of the effort to complete the activity. Or, the assistance of 2 or more helpers is required for the patient to complete the activity. If activity was not attempted, code reason: 7-Patient Refused. 9-Not Applicable-not attempted and the patient did not perform the activity before the current illness, exacerbation or injury. 10-Not Attempted due to Environmental Limitations-(lack of equipment, weather restraints, etc.). 88-Not Attempted due to Medical Conditions or Safety Concerns. 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 Pt's now receives hospice care, so pt doesn't have to provide as much physical assistance. Self Care: Independent Functional Cognition: Independent DME/Equipment: Bath Chair, Grab Bars, Tub/Shower OT Current Status Subjective Pt in bed, soiled linens with urine. Pt appeared slightly confused during tx, requiring cues for safety during ADLs. When OT asked pt where she was from, pt replied with what she used to do for work. OT attempted to ask pt where she lived, but again pt replied with information about her prior jobs. Mental Status/Objective Patient Orientation: Person, Confused, Place, Situation Attachments: IV Current Upper Extremity ROM WFL Upper Extremity Strength grossly 3+/5 ADL-Treatment Eating (QC): 6 Oral Hygiene (QC): 6 Shower/Bathe Self (QC): 4 (SBA due to VCs for safety) Lower Body Dressing (QC): 5 Toileting Hygiene (QC): 4 (SBA) Other Treatments Pt laying in bed, transferred supine to sit EOB independently. Pt walked to bathroom, no AD, CGA. Pt sat on toilet, doffed soiled clothes, performed sponge bath, and donned clean clothes. VCs for safety during sponge bath. Pt then stood at sink to complete grooming tasks and oral care independently. Pt returned to bed, CGA, no AD, then transferred supine independently. Pt educated on importance of keeping skin clean, and using call light when she needs to go to the bathroom, she verbalized understanding. Post tx, pt in bed, call light in reach and all needs met. Education OT Patient Education: Correct positioning, Energy conservation, Modified ADL techniques, Progress toward Goal/Update tx plan, Purpose of tx/functional activities, Rehab process Teaching Recipient: Patient Teaching Methods: Discussion Response to Teaching: Verbalize Understanding OT Fci Goals Feather Maker Goals Time Frame: May 01, 2022 Eating (QC): 6 Oral Hygiene (QC): 6 Toileting Hygiene (QC): 6 Shower/Bathe Self (QC): 6 Upper Body Dressing (QC): 6 Lower Body Dressing (QC): 6 On/Off Footwear (QC): 6 Additional Goals: 1-Demonstrate ADL Tasks, 2-Verbalize Understanding, 3- ImproveStrength/Gwendolyn 1=Demonstrate adherence to instructed precautions during ADL tasks. 2=Patient will verbalize/demonstrate understanding of assistive devices /modifications for ADL. 3=Patient will improve strength/tolerance for activity to enable patient to perform ADL's. OT Education/Plan Problem List/Assessment Assessment: Decreased Activ Tolerance, Decreased Safety Aware, Decreased UE Strength, Impaired I ADL's, Impaired Self-Care Skills Discharge Recommendations Plan/Recommendations: Continue POC Treatment Plan/Plan of Care Patient would benefit from OT for education, treatment and training to promote independence in ADL's, mobility, safety and/or upper extremity function for ADL's. Plan of Care: ADL Retraining, Functional Mobility, UE Funct Exercise/Act Treatment Duration: May 01, 2022 Frequency: 3 times per week (3-5 times per week) Estimated Hrs Per Day: .25 hour per day Rehab Potential: Fair Time/GCodes Start Time: 10:58 Stop Time: 11:23 Total Time Billed (hr/min): 25 Billed Treatment Time 1, EVL (10'), ADL (15') MAURA PEÑA OT Apr 20, 2022 11:01
[2022-04-20] MEDS ORDERED: CEFD300C3 PO (11:15)
[2022-04-20] MEDS ORDERED: METR-145 PO (11:15)
--- NOTE | 2022-04-20 11:15 | Discharge Summary ---
Discharge Summary Hospital Course Was the Problem List Reviewed?: Yes Problems/Dx: (1) Sepsis Status: Acute Qualifiers: Qualified Codes: A41.9 - Sepsis, unspecified organism (2) Cystitis without hematuria Status: Acute (3) Nausea vomiting and diarrhea Status: Acute (4) Small bowel obstruction Status: Acute Hospital Course Date of Admission: Apr 18, 2022 at 22:38 Admission Diagnosis : Family Physician/Provider: Date of Discharge: 04/20/22 Discharge Diagnosis: sepsis, uti, sbo Hospital Course: Angi is a 76 yo female who presented to ED on 04/18 for N/V/D and abdominal pain. Pt was found to have leukocytosis and met sepsis criteria with lactic acidosis of 4.11. CT abdomen/pelvis revealed partial small bowel obstruction. Urine culture revealed E. coli. Pt was started on ceftriaxone, metronidazole and ciprofloxacin and admitted to general medical floor. General surgery was consulted for possible SBO. They recommended bowel rest as pt was still having BMs, so SBO unlikely. Pt began to feel improvement of abdominal pain on 04/19 , but continued to have diarrhea. Pt reported some lower abdominal pressure that was relieved by passing gas. Her appetite was diminished, but she was tolerating diet with no nausea or vomiting. Pt's lactic acid came down to 1.38 at this point. On 04/20 pt reported she was feeling well enough to go home, but would like assistance with walking as she has been in bed for a few days. Pts labs and vitals were stable and physical exam was within normal limits. Physical therapy consultation was done. Pt stable for discharge. RO CASTRO STUDENT Labs and Pending Lab Test: Laboratory Tests 04/19/22 11:24: Lactic Acid Level 1.38 04/20/22 06:50: White Blood Count 12.6H, Red Blood Count 3.79L, Hemoglobin 11.4L, Hematocrit 35, Mean Corpuscular Volume 92, Mean Corpuscular Hemoglobin 30, Mean Corpuscular Hemoglobin Concent 33, Red Cell Distribution Width 13.5, Platelet Count 235, Mean Platelet Volume 9.5, Immature Granulocyte % (Auto) 1, Neutrophils (%) (Auto) 78H, Lymphocytes (%) (Auto) 10L, Monocytes (%) (Auto) 8, Eosinophils (%) (Auto) 2, Basophils (%) (Auto) 0, Neutrophils # (Auto) 9.9H, Lymphocytes # (Auto) 1.3, Monocytes # (Auto) 1.1H, Eosinophils # (Auto) 0.3, Basophils # (Auto) 0.1, Immature Granulocyte # (Auto) 0.1, Sodium Level 134L, Potassium Level 3.9, Chloride Level 105, Carbon Dioxide Level 19L, Anion Gap 10, Blood Urea Nitrogen 14, Creatinine 0.63, Estimat Glomerular Filtration Rate 91, BUN/Creatinine Ratio 22, Glucose Level 109H, Calcium Level 8.3L, Corrected Calcium 9.2, Total Bilirubin 0.5, Aspartate Amino Transf (AST/SGOT) 14, Alanine Aminotransferase (ALT/SGPT) 17, Alkaline Phosphatase 42, Total Protein 5.1L, Albumin 2.9L Microbiology 04/18/22 Urine Culture - Preliminary, Resulted Mixed Bacterial Dora Probable E.coli 04/18/22 Blood Culture - Preliminary, Resulted No growth Home Meds Active Metronidazole 500 Mg Tablet 500 Mg PO TID Cefdinir 300 Mg Capsule 300 Mg PO BID Reported Vitamin D3 (Cholecalciferol (Vitamin D3)) 25 Mcg (1000 Unit) Tablet 25 Mcg PO DAILY Multi-Vitamin Daily (Multivitamin) 1 Each Tablet 1 Each PO DAILY Lisinopril 20 Mg Tablet 20 Mg PO DAILY Assessment/Pt Instructions pcp 1 week Discharge Planning: <30 minutes discharge planning Discharge Instructions Discharge Diet: No Restrictions Discharge Physical Examination Vital Signs Vital Signs Date Time Temp Pulse Resp B/P (MAP) Pulse Ox O2 Delivery O2 Flow Rate FiO2 04/20/22 07:36 37.5 94 18 120/61 (80) 98 Room Air General Appearance: No Apparent Distress, WD/WN, Chronically ill Respiratory: Lungs Clear, Normal Breath Sounds Cardiovascular: Regular Rate, Rhythm Neurologic/Psychiatric: Alert, Oriented x3, No Motor/Sensory Deficits, Normal Mood/Affect Allergies: Coded Allergies: Penicillins (Verified Allergy, Unknown, 04/18/22) Discharge Summary Date of Admission Apr 18, 2022 at 22:38 Date of Discharge Discharge Date: Apr 20, 2022 Admission Diagnosis 1. Acute likely infectious gastroenteritis with secondary dehydration much improved will DC IV fluids as patient is tolerating p.o. monitor today with likely discharge tomorrow. 2. History of hypertension currently normotensive hold lisinopril for now. KARINA MAY DO Apr 20, 2022 11:15
--- NOTE | 2022-04-20 11:23 | Progress Note ---
RO CASTRO MED STUDENT 04/20/22 1123: Progress Note Angi is a 76 yo female who presented to ED on 04/18 for N/V/D and abdominal pain. Pt was found to have leukocytosis and met sepsis criteria with lactic acidosis of 4.11. CT abdomen/pelvis revealed partial small bowel obstruction. Urine culture revealed E. coli. Pt was started on ceftriaxone, metronidazole and ciprofloxacin and admitted to general medical floor. General surgery was consulted for possible SBO. They recommended bowel rest as pt was still having BMs, so SBO unlikely. Pt began to feel improvement of abdominal pain on 04/19 , but continued to have diarrhea. Pt reported some lower abdominal pressure that was relieved by passing gas. Her appetite was diminished, but she was tolerating diet with no nausea or vomiting. Pt's lactic acid came down to 1.38 at this point. On 04/20 pt reported she was feeling well enough to go home, but would like assistance with walking as she has been in bed for a few days. Pts labs and vitals were stable and physical exam was within normal limits. Physical therapy consultation was done. Pt stable for discharge. LETY MAY DO 04/21/22 0547: Supervisory-Addendum Brief Verification & Attestation Participated in pt care: history, MDM, physical Personally performed: exam, history, MDM, supervision of care Care discussed with: Medical Student Procedures: n/a Results interpretation: Verified all documentation Verification and Attestation of Medical Student E/M Service A medical student performed and documented this service in my presence. I reviewed and verified all information documented by the medical student and made modifications to such information, when appropriate. I personally performed the physical exam and medical decision making. Lety May, Apr 21, 2022,05:47 RO CASTRO MED STUDENT Apr 20, 2022 11:23 LETY MAY DO Apr 21, 2022 05:47
[2022-04-20 12:00] VITALS: BP 120/61
[2022-04-20 12:24] VITALS: BP 110/55
--- NOTE | 2022-04-20 13:05 | Physical Therapy Evaluation ---
PT Evaluation-General Medical Diagnosis Admission Date Apr 18, 2022 at 22:38 Medical Diagnosis: sepsis Onset Date: Apr 18, 2022 Therapy Diagnosis Therapy Diagnosis: debility Precautions Precautions/Isolations: Fall Prevention, Standard Precautions Referral Physician: Nithya Reason for Referral: Evaluation/Treatment Medical History Pertinent Medical History: HTN Current History EMS secondary to abdominal pain with N&V Reviewed History: Yes Social History Home: Single Level Current Living Status: Spouse Entry Into Home: Ramp Prior Prior Level of Function SCALE: Activities may be completed with or without assistive devices. 5-Rjszolvkxl-kgyflfz completes the activity by him/herself with no assistance from a helper. 5-Set-up or Clean-up Assistance-helper sets up or cleans up; patient completes activity. [place] assists only prior to or following the activity. 4-Supervision or Touching Assistance-helper provides verbal cues and/or touching/steadying and/or contact guard assistance as patient completes activity. Assistance may be provided throughout the activity or intermittently. 3-Partial/Moderate Assistance-helper does LESS THAN HALF the effort. [place] lifts, holds or supports trunk or limbs, but provides less than half the effort. 2-Substantial/Maximal Assistance-helper does MORE THAN HALF the effort. [place] lifts or holds trunk or limbs and provides more than half the effort. 6-Zleotznws-bjnvpu does ALL the effort. Patient does none of the effort to complete the activity. Or, the assistance of 2 or more helpers is required for the patient to complete the activity. If activity was not attempted, code reason: 7-Patient Refused. 9-Not Applicable-not attempted and the patient did not perform the activity before the current illness, exacerbation or injury. 10-Not Attempted due to Environmental Limitations-(lack of equipment, weather restraints, etc.). 88-Not Attempted due to Medical Conditions or Safety Concerns. Bed Mobility: 6 Transfers (B,C,W/C): 6 Gait: 6 Indoor Mobility (Ambulation): Independent Prior Devices Use: None PT Evaluation-Current Subjective Patient agrees to PT. Objective Patient Orientation: Normal For Age ROM/Strength ROM Lower Extremities bilateral LE WFL Strength Lower Extremities 4-/5 grossly bilateral LE Integumentary/Posture Bowel Incontinence: No Bladder Incontinence: No Posture WFL Neuromuscular (Tone, Coordination, Reflexes) grossly intact Sensory Vision: Functional Hearing: Functional Transfers Lying to Sitting/Side of Bed(Q: 6 Sit to Stand (QC): 6 Chair/Nxg-ly-Zwhuw Xfer(QC): 6 Toilet Transfer (QC): 6 Gait Does the Patient Walk?: Yes Mode of Locomotion: Walk Anticipated Mode of Locomotion: Walk Walk 10 feet (QC): 6 Walk 50 ft with 2 Turns(QC): 6 Walk 150 ft (QC): 6 Gait Assistive Device: None Comments/Gait Description safe and functional with no deviation Balance Sitting Static: Normal Sitting Dynamic: Normal Standing Static: Normal Standing Dynamic: Normal Assessment/Needs 76 y.o. female, is currently at [facility] with all gross motor skills safely and does not require skilled PT intervention. Rehab Potential: Fair PT Plan Treatment/Plan Treatment Plan: Discontinue PT, goals met Treatment Duration: Apr 20, 2022 Frequency: 1 time per week Estimated Hrs Per Day: .25 hour per day Patient and/or Family Agrees t: Yes Time/GCodes Time In: 1125 Time Out: 1136 Total Billed Treatment Time: 11 Total Billed Treatment 1 visit [facility] 11 min BOWEN RUIZ PT Apr 20, 2022 13:05
--- NOTE | 2022-04-20 18:39 | Physician Query Clarification ---
Physician Query-General Query to Physician: Clinical Validation Clarification Dr. : So Roca or Dr. So May Sepsis has been documented in the medical record. After study, do you consider Sepsis a clinically valid diagnosis? If not clinically valid, please document "Sepsis, ruled out" on the progress notes and/or discharge summary. 1. No Sepsis, is not clinically valid/ruled out 2. Yes, Sepsis is clinically valid diagnosis 3. Other, with explanation of the clinical findings 4. Clinically undetermined, no explanation for the clinical findings Additional information: In the setting of N/V/D with dehydration, "acute likely infectious gastroenteritis" Admission VS/Labs: HR 77, RR 22, BP 104/54, SpO2 99% sat on room air T 36.1, WBC 15.3, Lactic acid 4.11 then 1.38, BC X 1 no growth, Urine culture "probable E. Coli". ER treatment: Normal saline 2 L, lactated Ringer's 1 L, ceftriaxone IV, ciprofloxacin IV, metronidazole IV, In responding to this query, please exercise your independent professional judgment. The purpose of this communication is to more accurately reflect the complexity of your patients condition. The fact that a question is asked does not imply that any particular answer is desired or expected. Thank you for timely response to this clarification. Swathi Wray MSN, RN Clinical Certified Adaptive Physical Educator PH [email or web address] PHYSICIAN RESPONSE: Based on the clinical findings in the record, please respond to the query above on this document as an addendum. Physician Response: Physician Response Pt meets criteria for sepsis. If you have questions please contact: Electronic Warfare Operator: Ext: Thank you for your time and cooperation. Clinical Certified Adaptive Physical Educator/Electronic Warfare Operator This is a permanent part of the medical record SWATHI WRAY Apr 20, 2022 18:39 KARINA MAY DO Apr 20, 2022 20:08 NADEGE ROCA MD Apr 22, 2022 16:07
== END 2022-04-20 14:13 | disposition home or self-care (01) | DRG 872 ==
LOC: ER FS 18:03 → 4TH 22:38
PROVIDERS: ADMIT Internal Medicine; ATTEND Internal Medicine
DX: A41.9 Sepsis, unspecified organism (principal); K56.609 Unspecified intestinal obstruction, unspecified as to partial versus complete obstruction; K81.0 Acute cholecystitis; A09 Infectious gastroenteritis and colitis, unspecified; E87.2 Acidosis; E86.0 Dehydration; I10 Essential (primary) hypertension; Z20.822 Contact with and (suspected) exposure to COVID-19; N30.90 Cystitis, unspecified without hematuria; K81.1 Chronic cholecystitis
CPT/HCPCS: 36415; 51701; 74177; 80048; 80053; 81000; 82274; 83605; 84484; 85007; 85025; 85027; 85610; 85730; 86141; 87015; 87040; 87045; 87046; 87077; 87088; 87186; 87636; 87899; 93005; 93041